=== PATIENT | male | born 1945 | race Two or more races ===

== ENCOUNTER 2020-04-04 15:50 | Emergency (ER) | payer OTHER ==
[~2020-04-04] VITALS: Ht 167.6 cm; Wt 86.2 kg
[~2020-04-04 15:50] MED LIST: ASPIR-LOW81 M1 PO; ENALAPRIL5 MG PO; GLIPIZIDE PO; GLU500 PO; V10 PO
[2020-04-04 16:24] VITALS: BP 154/78; Ht 167.6 cm; Wt 86.2 kg
== END 2020-04-04 17:20 | disposition home or self-care (01) ==
LOC: ED 15:50
DX: S16.1XXA Strain of muscle, fascia and tendon at neck level, initial encounter (principal); I10 Essential (primary) hypertension; E11.9 Type 2 diabetes mellitus without complications; Z88.1 Allergy status to other antibiotic agents; V49.49XA Driver injured in collision with other motor vehicles in traffic accident, initial encounter; Y93.I9 Activity, other involving external motion; Y92.488 Other paved roadways as the place of occurrence of the external cause; Y99.8 Other external cause status